=== PATIENT | male | born 1955 | race Caucasian/White ===

== ENCOUNTER → 2017-02-06 | Outpatient (CLI) | payer OTHER | LOC: BHFA 14:45 | PROVIDERS: ATTEND Internal Medicine Interventional Cardiology | DX: R00.2 Palpitations (principal); I25.10 Atherosclerotic heart disease of native coronary artery without angina pectoris; E78.00 Pure hypercholesterolemia, unspecified; I20.9 Angina pectoris, unspecified ==

== ENCOUNTER → 2017-02-23 | Outpatient (CLI) | payer OTHER | LOC: BHFA 13:00 | PROVIDERS: ATTEND Internal Medicine Interventional Cardiology | DX: I25.10 Atherosclerotic heart disease of native coronary artery without angina pectoris (principal) | CPT/HCPCS: 78452; 93017; A9500 ==

== ENCOUNTER → 2018-02-26 | Outpatient (CLI) | payer OTHER | LOC: BHFA 14:00 | PROVIDERS: ATTEND Internal Medicine Cardiovascular Disease | DX: R00.2 Palpitations (principal); I25.10 Atherosclerotic heart disease of native coronary artery without angina pectoris; Z95.5 Presence of coronary angioplasty implant and graft | CPT/HCPCS: 78452; 93017; A9500; J2785 ==

== ENCOUNTER 2018-03-13 08:12 | Observation (INO) | payer OTHER ==
[2018-03-13] MEDS ORDERED: NS 1,000 ML IV ONE (08:15)
[2018-03-13] MEDS ORDERED: diphenhydrAMINE 25 MG CAP PO ONE (08:15)
[2018-03-13] MEDS ORDERED: FAMOTIDINE 20 MG TAB PO ONE (08:15)
[2018-03-13] MEDS ORDERED: ASPIRIN EC 325 MG TAB PO ONE (08:15)
[2018-03-13] MEDS ORDERED: DIAZEPAM 5 MG TAB PO ONE (08:15)
[2018-03-13 08:52] LABS: PLATELET COUNT 207 10^3/uL (150-400)
[2018-03-13 09:01] LABS: INR 1.08 (0.83-1.16); PROTIME(PATIENT) 14.2 SEC (12.0-15.0)
[2018-03-13] MEDS ORDERED: VERAPAMIL 5 MG/2 ML VIAL ONE (09:06)
[2018-03-13] MEDS ORDERED: IOPAMIDOL (ISOVUE-370) 150 ML BTL IV ONE ×2 (09:06→10:44)
[2018-03-13] MEDS ORDERED: fentaNYL 100 MCG/2 ML INJ ONE (09:06)
[2018-03-13] MEDS ORDERED: MIDAZOLAM 2 MG/2 ML VIAL ONE (09:06)
[2018-03-13] MEDS ORDERED: HEPARIN 10,000 UNIT/10 ML MDV (1,000 UNIT/ML) ONE (09:06)
[2018-03-13] MEDS ORDERED: LIDOCAINE 1% 300 MG/30 ML SDV ONE (09:06)
--- NOTE | 2018-03-13 09:10 | PDPROPOC ---
Sedation Plan of Care Sedation Plan of Care: vital signs stable, mental status noted, patient educated of risks, benefits, alternatives, patient can tolerate sedation ASA Classification: ASA 3 Planned drugs: fentanyl, midazolam Mallampati Score: Class 3 Mallampati Reference Image: Patient passed 3-3-2 rule?: Yes
--- NOTE | 2018-03-13 09:11 | PDHPUP ---
History & Physical Update H&P update statement: This history and physical update is based on an assessment of the patient which was completed after admission or registration (within 24 hours), but prior to the surgery/procedure. H&P update: H&P reviewed & patient examined (CCS Class IV angina as well as intermediate risk stress...), no change in patient's condition since H&P completed
--- NOTE | 2018-03-13 09:53 | PDDXCAT ---
Diagnostic Cath Note - . Date: 03/13/18 Clip Loading Machine Feeder: Andres Indication: CCC Class III and IV angina on medical treatment - Procedure Access: right groin Procedure: left heart catheterization, coronary angiography, left ventriculogram , other (free arterial graft angiography to RCA) - Materials Left Heart Cath size: 6F Left Heart Cath materials: JL4.0, JR4.0, JR4.5, pigtail - Findings-Left Heart Catheterization LM: Left main is 7mm in size. Bifurcates into a LAD and circumflex system. There is a 30-40% lesion after the superior take off from the left coronary cusp. LAD: LAD is 3.0mm in size proximally, just distal to the septal takeoff. Previously stented proximally. There is a hazy lesion that reveals at minimum 50 -60% stenosis in the mid LAD with associated calcification. BRUNILDA III to the distal vessel without evidence of significant in stent restenosis. LCX: Circumflex is 2.5mm in size proximally. Previously stented in the mid segment without evidence of in stent or segment restenosis. Left to right collaterals from the circumflex to distal right coronary artery consistent with impaired antegrade flow to the distal RCA. A 65-70% ostial stenosisis is present. Gives rise to a 2.5mm obtuse marginal branch with BRUNILDA III flow. RCA: RCA is 4mm in size. It is occluded after the conus branch. The free distal arterial graft to the distal RCA is occluded with 90% stenosis and 70% to the ostium and is relatively diffusly diseased to the acute margin of the heart. BRUNILDA 0 flow distally. REMI: A REMI or radial free graft is severely blocked with a 90% stenosis of the mid segment and a 70 percent ostial stenosis the vessel has diffuse narrowing in the proximal segmen to the level of the acute margin of the heart. EDP: 13mmHg LVEF: 50% Wall motion: The distal anterior wall and apex is hypokinetic including the distal inferior wall. 2plus MR. The visualized portion of the thoracic aortic valve reveals three sinuses of valsalva most consistent with a trileaflet valve. His ascending aorta measured at 4.7cm by TTE on 11/2017 - Findings-Right Heart Catheterization AO: 88/58/72 Complications: Patient went into VF arrest and was shocked once and converted back to NSR. Estimated blood loss: <50ml Closure method: Angioseal Assessment: Severe [place] vessel coronary disease with occlusion of all grafts except for a free arterial graft to the RCA. Evidence of distal left to right collaterals consistent with impaired antegrade flow to the RCA. Post repair of the atrerial graft consisted of pressurized injections that resulted in the patient going into ventricular fibrillation and 200 joules of biphaisc shock was administered with subsequent return of the rhythm to normal sinus rhythm. Plan: Dual antiplatelet therapy with Aspirin 325mg for the first month followed by Aspirin 81mg along with Plavix 75mg daily should be continued for at least 1 year following drug eluting stent implantation. No elective surgery for the first 6 months. Decisions to stop dual antiplatelet therapy before 1 year should involve our office [facility]. [phone]. If the patient continues to have medically refractory angina we will plan to perform repeat angiography with [lanned IVUS or FFR of the LAD and the ostial circumflex lesion identified on today's examination. My thinking is that the inferior wall is clearly underperfused and the graft appeared to be larger than the previous angiogram in 2013. We also have smaller stents that made PTCA and stent placement feasible at this time. Intervention: A 6 [place] Multipurpose guiding catheter was used for guide catheter support. A 0.014 long Drone Pilot 150 Wire was advanced across the lesion in question in the RCA free graft and a 1.25 x 6mm Sprinter Legend balloon was deployed at the site. 3 balloon inflation with the Sprinter Legend balloon were performed. The lesion was stented with a Synergy 2.25 x 38mm drug eluting stent. The stent was deployed mid free artery to distal RCA at a maximum of 16 YARIEL of pressure. There was a 909% stenosis with 0% residual stenosis and BRUNILDA I flow improved to BRUNILDA III post stent implant. Stenting of the proximal and ostial portion of the free artery to the distal RCA was then performed.. There was 70% stenosis which was stented with Synergy 2.5 x 8mm drug eluting stent. Multiple post dilatation inflations in the ostium to a maxumum pressure of 18 YARIEL. There was 0% stenosis and BRUNILDA III flow pre and post stent deployment. Post stent angiography resulted in a brief V fib arrest requiring defibrillation. Deployment of the second stent resulted in a kink in the artery at the level of the acute margin of the heart. This required the artery to be cuffed with a Synergy 2.25 x 16mm drug eluting stent at the distal margin of the first stent. 80% stenosis pre and 0% stenosis post. BRUNILDA III pre and post stent implant.
[2018-03-13] MEDS ORDERED: NITROGLYCERIN 1,500 MCG/15 ML VIAL MISC ONE (10:05)
[2018-03-13] MEDS ORDERED: BIVALIRUDIN 250 MG/5 ML VIAL IV ONE (10:05)
[2018-03-13] MEDS ORDERED: CLOPIDOGREL BISULFATE 75 MG TAB ONE (11:03)
[2018-03-13] MEDS ORDERED: HYDROCODONE/APAP 5/325 TAB PO PRN (11:34)
[2018-03-13] MEDS ORDERED: LORazepam 2 MG/ML INJ IVP PRN (11:34)
[2018-03-13] MEDS ORDERED: OXYCODONE/APAP 5/325 TAB PO PRN (11:34)
[2018-03-13] MEDS ORDERED: ATROPINE SULFATE 1 MG/10 ML SYR IVP PRN (11:34)
[2018-03-13] MEDS ORDERED: CLOPIDOGREL BISULFATE 75 MG TAB PO ONE (11:34)
[2018-03-13] MEDS ORDERED: ONDANSETRON 4 MG/2 ML VIAL IVP PRN (11:34)
[2018-03-13] MEDS ORDERED: TEMAZEPAM 15 MG CAP PO PRN (11:34)
[2018-03-13] MEDS ORDERED: NITROGLYCERIN 0.4 MG BTL SL PRN (11:34)
[2018-03-13] MEDS ORDERED: NS 1,000 ML IV SCH (11:45)
[2018-03-13] MEDS: ISOSORBIDE DINITRATE 10 MG TAB PO SCH (14:26)
[2018-03-13] MEDS: NIACIN 500 MG TAB PO SCH (20:40)
[2018-03-13] MEDS ORDERED: TAMSULOSIN HCL 0.4 MG CAP PO SCH (21:00)
[2018-03-13] MEDS ORDERED: ROSUVASTATIN CALCIUM 20 MG TAB PO SCH (21:00)
[2018-03-13] MEDS ORDERED: ISOSORBIDE DINITRATE 10 MG TAB PO SCH (21:00)
[2018-03-14 04:21] LABS: PLATELET COUNT 168 10^3/uL (150-400)
[2018-03-14] MEDS ORDERED: ASPIRIN EC 325 MG TAB PO SCH (09:00)
[2018-03-14] MEDS ORDERED: CLOPIDOGREL BISULFATE 75 MG TAB PO SCH (09:00)
[2018-03-14] MEDS: NIACIN 500 MG TAB PO SCH (09:11)
[2018-03-14] MEDS: ISOSORBIDE DINITRATE 10 MG TAB PO SCH (09:14)
--- NOTE | 2018-03-14 11:51 | CPEKG ---
Test Reason : OPEN Blood Pressure : / mmHG Vent. Rate : 062 BPM Atrial Rate : 062 BPM P-R Int : 152 ms QRS Dur : 103 ms QT Int : 429 ms P-R-T Axes : 043 -23 065 degrees QTc Int : 436 ms Sinus rhythm Probable left atrial enlargement Borderline left axis deviation Low voltage, extremity leads Confirmed by Andriy Sanchez ([id number]) on 03/14/2018 11:51:08 AM Referred By: Confirmed By:Andriy Sanchez
[2018-03-14 12:01] VITALS: BP 107/79
--- NOTE | 2018-03-14 12:02 | CPEKG ---
Test Reason : Post heart cath Blood Pressure : / mmHG Vent. Rate : 054 BPM Atrial Rate : 053 BPM P-R Int : 162 ms QRS Dur : 109 ms QT Int : 434 ms P-R-T Axes : 044 001 067 degrees QTc Int : 412 ms Sinus rhythm Low voltage, extremity leads Confirmed by Andriy Sanchez ([id number]) on 03/14/2018 12:02:26 PM Referred By: Confirmed By:Andriy Sanchez
--- NOTE | 2018-03-14 12:21 | CPEKG ---
Test Reason : OPEN Blood Pressure : / mmHG Vent. Rate : 071 BPM Atrial Rate : 071 BPM P-R Int : 148 ms QRS Dur : 104 ms QT Int : 403 ms P-R-T Axes : 042 017 085 degrees QTc Int : 438 ms Sinus rhythm Probable left atrial enlargement Low voltage, extremity and precordial leads ST elevation, consider inferior injury Confirmed by Andriy Sanchez ([id number]) on 03/14/2018 12:21:31 PM Referred By: Confirmed By:Andriy Sanchez
--- NOTE | 2018-03-14 19:30 | GDS ---
SUPERVISING VICE PRESIDENT QUALITY ASSURANCE: Elver Campos MD ADMISSION DIAGNOSES: 1. Coronary artery disease. 2. Chest pressure. 3. Abnormal nuclear stress test. 4. Hyperlipidemia. 5. Obstructive sleep apnea. 6. Previous transient ischemic attack. DISCHARGE DIAGNOSES: 1. Coronary artery disease. 2. Percutaneous coronary intervention of distal RCA with a 2.25 x 38, RACHNA implantation into the distal RCA, percutaneous coronary intervention to the proximal RCA with 2 RACHNA implantation of a 2.5 x 8 and a 2.225 x 16 drug-eluting stent. 3. Intraprocedural ventricular fibrillation arrest requiring 1 defibrillation with returning back to sinus rhythm and spontaneous circulation. 4. Hyperlipidemia. 5. History of obstructive sleep apnea. 6. Obstructive sleep apnea 7. Previous CVA PROCEDURE PERFORMED: 1. Electrocardiogram. 2. Diagnostic coronary angiogram. 3. Percutaneous coronary intervention of distal RCA with a 2.25 x 38, RACHNA implantation into the distal RCA, percutaneous coronary intervention to the proximal RCA with 2 RACHNA implantation of a 2.5 x 8 and a 2.225 x 16 drug-eluting stent. 4. Defibrillation. 5. Electrocardiogram. BRIEF HISTORY: The patient is a 62-year-old male with significant past history of coronary artery disease with known history of CABG with all graft failures. He has had multiple PCIs in the past. He also has significant history of obstructive sleep apnea, hypoxia, hyperlipidemia, and TIAs. He had been recently reporting ongoing fatigue symptoms with chest pressure. He did undergo nucleolar study, which showed a medium-sized [id number] _ fixed, but partially reversible mid to distal inferior deficit consistent with infarct with diana-infarct ischemia. Due to this and his ongoing symptoms, it was decided that he undergo elective heart catheterization. Patient was admitted through CV, prepped for procedure, and taken to the cardiac catheterization lab. There, a diagnostic heart catheterization was done showing left main with noted 30% to 40% lesion after superior takeoff. LAD showing previous stented proximal with some mild hazy 50% to 60% in the mid LAD, BRUNILDA-3 flow. Circumflex with previous stents in mid segment without evidence of in-stent segment stenosis. Left to right collateralization from the circumflex to the distal right coronary artery consistent with impaired antegrade flow to the distal RCA. Noted a 65% to 70% ostial stenosis was present. RCA noted with a 90% stenosis in the distal section, 70% in mid. REMI graft to distal RCA noted with a 90% stenosis in the mid segment and a 70% ostial stenosis of the vessel with diffuse narrowing in the proximal segment of acute margin of the heart. EDP was estimated at 13 mmHg. EF was 50% . Noted to have hypokinetic into the apex and distal inferior wall. 2+ MR. Ascending aorta measured 4.7. At that time, it was decided to go on with percutaneous coronary intervention down REMI to distal RCA. Distal lesion was first open with a 2.25 x 38 Synergy RACHNA. Next, the proximal section of graft was opened with a 2.5 x 8 RACHNA and a 2.225 x 16 RACHNA. In the procedure, patient did note to have a brief episode of ventricular tachycardia with dampening of the catheter requiring 1 defibrillation, no CPR was performed, returning was normal sinus rhythm. He was transferred to [facility] for recovery and ultimately to the PCU for overnight observation. There, he reports he has had no chest pain or pressure. Continuous manager van shows that he is maintaining sinus bradycardia with no malignant arrhythmias or pauses. He has been up and walking the unit without difficulties. PHYSICAL EXAMINATION: GENERAL APPEARANCE: Today, a medium built, well-groomed male. He is alert and oriented to person, place, time, situation. Appears to be under no acute distress. VITAL SIGNS: Current blood pressure is 107/79, heart rate 50 sinus stevie on the monitor, respirations 92% on room air, temperature of 36.6 degrees Celsius. HEENT: Head is normocephalic. Lips and tongue are pink and moist with no signs of cyanosis. Conjunctivae pink. NECK: Trachea is midline, +2 carotid pulses bilateral. No auscultated bruits. No jugular vein distention. RESPIRATORY: Lungs are clear to auscultation. No rhonchi, rales, or wheezes. No accessory muscle use. No intercostal muscle retraction. CARDIAC: Regular rate, regular rhythm, S1, S2. No S3, S4, gallops, rubs. A 2/6 systolic murmur noted along the left sternal border. ABDOMEN: Soft, nontender. Bowel sounds x4 quadrants. No organomegaly. No palpable masses. SKIN: [place], warm, dry. No cyanosis. No clubbing. No peripheral edema. VASCULAR: +2 radials bilateral, +2 carotids bilateral, +1 dorsal pedal and posterior tibial pulses bilateral. SKIN: Catheter insertion site, right groin site, with no redness, swelling, drainage, ecchymosis, or hematoma. No auscultated bruit noted over either site. CMS checks within normal limits right lower extremity. LABORATORY/IMAGING: Studies drawn today show WBC of 6.17, hemoglobin 13.7, hematocrit of 41.0, platelet count 168. Sodium 138, potassium 4.5, chloride 103 , CO2 29, BUN 13, creatinine 0.9, glucose 87, phosphorus 3.7, magnesium 2.7. Total bilirubin 0.7, AST 21, albumin 3.3. Fasting lipid panel done yesterday showing triglycerides 106, total cholesterol 142, LDL 78, HDL 43. Diagnostic heart catheterization, percutaneous coronary intervention as mentioned above. Morning electrocardiogram showing sinus rhythm, normal axis, Q-waves noted in III and AVF suggesting old infarction. DISCHARGE MEDICATIONS: Please see discharge medication reconciliation sheet. Note, patient will continue dual antiplatelet therapy of aspirin at 325 mg p.o. daily and clopidogrel at 75 mg p.o. daily. DISCHARGE DISPOSITION: Patient will be discharged home in stable condition. He is under activity restrictions of not lifting more than 10 pounds for next week and no strenuous activity for the next 2 weeks. DISCHARGE INSTRUCTIONS: Post-percutaneous coronary intervention discharge instructions went over with the patient, including monitoring for signs of infection, bleeding precautions, activity restrictions, medication compliancy, especially dual antiplatelet therapy with 3 RACHNA implantations. At the time of discharge, patient verbalizes understanding all instructions and has no questions or concerns. He has a followup appointment set in our office in 1 week's time. He has been told that if any problems or concerns come up post- hospitalization, he is to notify our office or return to the hospital. TOTAL TIME SPENT ON DISCHARGE: Greater than 30 minutes. /[id number]/MODL MTDD
== END 2018-03-14 13:22 | disposition home or self-care (01) ==
LOC: FCATH 08:12 → F2W 11:16
PROVIDERS: ADMIT Internal Medicine Cardiovascular Disease; ATTEND Internal Medicine Cardiovascular Disease
DX: I25.119 Atherosclerotic heart disease of native coronary artery with unspecified angina pectoris (principal); I49.01 Ventricular fibrillation; I25.2 Old myocardial infarction; Z95.1 Presence of aortocoronary bypass graft; Z95.5 Presence of coronary angioplasty implant and graft; G47.33 Obstructive sleep apnea (adult) (pediatric); E78.5 Hyperlipidemia, unspecified; Z86.73 Personal history of transient ischemic attack (TIA), and cerebral infarction without residual deficits; I10 Essential (primary) hypertension; Z79.82 Long term (current) use of aspirin; Z79.02 Long term (current) use of antithrombotics/antiplatelets
CPT/HCPCS: 92960; 93005; 93458; C1725; C1760; C1769; C1874; C1887; C9604; J0583; J1644; J2250; J3010; Q9967

== ENCOUNTER → 2018-10-31 | Day surgery (SDC) | payer OTHER ==
[~2018-10-31] MED LIST: LIDOCAINE 1% 300 MG/30 ML SDV SC ONE
== END | disposition home or self-care (01) ==
LOC: FCATH 07:24
PROVIDERS: ATTEND Internal Medicine Cardiovascular Disease
DX: R00.2 Palpitations (principal); I25.118 Atherosclerotic heart disease of native coronary artery with other forms of angina pectoris; E78.5 Hyperlipidemia, unspecified; I10 Essential (primary) hypertension; Z95.1 Presence of aortocoronary bypass graft; Z95.5 Presence of coronary angioplasty implant and graft
CPT/HCPCS: C1764